=== PATIENT | male | born 1945 | race Caucasian/White ===

== ENCOUNTER → 2017-12-20 | Outpatient (CLI) | payer OTHER, MEDICARE ==
[~2017-12-20] MED LIST: ADVAIR 250-501 EACH INH; ASPIRIN81 M2 PO; COQ-10100 MG PO; FLOMAX PO; LEVAQUIN 500 M500 M2 PO; LISINOPRIL20 MG PO; MIRALAX255 GM PO; OMEGA-3100 MG PO; PAXIL40 MG PO; PLAVIX 75 MG TA75 M1 PO; PROVENTIL HFA6.7 G1 INH; SPIRIVA INH; TOPROL XL50 MG PO; VITAMIN D400 UNI1 PO; VYTORIN 10-201 EACH PO; [UNRECOGNIZED DRUG - OTHER]
== END ==
LOC: RAD 10:02
DX: J98.11 Atelectasis (principal)

== ENCOUNTER → 2021-08-08 | Outpatient (CLI) | payer OTHER, MEDICARE | LOC: RAD 11:56 | PROVIDERS: ATTEND Internal Medicine Pulmonary Disease | DX: J44.9 Chronic obstructive pulmonary disease, unspecified (principal) ==